=== PATIENT | male | born 1960 | race Caucasian/White ===

== ENCOUNTER → 2018-04-02 | Outpatient (CLI) | payer OTHER, MEDICAID | LOC: CIMAGING 09:52 → EDSTATUS 09:59 → CIMAGING 10:00 | PROVIDERS: ATTEND Internal Medicine | DX: G40.909 Epilepsy, unspecified, not intractable, without status epilepticus (principal); D17.1 Benign lipomatous neoplasm of skin and subcutaneous tissue of trunk | CPT/HCPCS: 71046-PO ==

== ENCOUNTER 2018-04-28 10:37 | Day surgery (SDC) | payer OTHER, MEDICAID ==
[2018-04-28] MEDS ORDERED: LIDOCAINE 1% 300 MG/30 ML SDV ONE (10:46)
[2018-04-28] MEDS ORDERED: BUPIVACAINE 0.5% 30 ML SDV ONE (10:47)
[2018-04-28] MEDS ORDERED: LR 1,000 ML IV ONE (11:06)
[2018-04-28] MEDS ORDERED: LIDOCAINE 1% 2 ML INJ ID PRN (11:06)
[2018-04-28] MEDS ORDERED: ceFAZolin 2 GM/DEXTROSE 100 ML IV ONE (11:06)
--- NOTE | 2018-04-28 11:48 | PDANEPAE ---
ANE History of Present Illness chest lipoma ANE Past Medical History - Cardiovascular History Hx Hypertension: No Hx Arrhythmias: No Hx Chest Pain: No Hx Coronary Artery / Peripheral Vascular Disease: No Hx CHF / Valvular Disease: No Hx Palpitations: No - Pulmonary History Hx COPD: No Hx Asthma/Reactive Airway Disease: No Hx Recent Upper Respiratory Infection: No Hx Oxygen in Use at Home: No Hx Sleep Apnea: No Sleep Apnea Screening Result - Last Documented: Negative - Neurologic History Hx Cerebrovascular Accident: No Hx Seizures: Yes Hx Dementia: No Neurologic History Comment: last seizure 3 or 4 years. 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 bilateral hearing aides. - Chronic Pain History Chronic Pain: No - Surgical History Prior Surgeries: vagal nerve stimulator placed. battery replaced on vagal nerve stimulator ANE Review of Systems Review of systems is: negative Review of Systems: - Exercise capacity METS (RN): 4 METS ANE Patient History - Allergies Allergies/Adverse Reactions: No Known Allergies Allergy (Unverified 11/05/14 17:35) - Home Medications Home medications: home medication list seen and reviewed Home Medications: Keppra 1000 mg 11/05/14 [Last Taken 04/28/18 09:15] Zonisamide 11/05/14 [Last Taken 04/28/18 09:15] Herbals/Supplements -Info Only 04/27/18 [Last Taken 04/27/18] - NPO status NPO Status: no food or drink >8 hours NPO Since - Liquids (Date): 04/28/18 NPO Since - Liquids (Time): 09:15 NPO Since - Solids (Date): 04/27/18 NPO Since - Solids (Time): 21:30 - Anes Hx Anes Hx: no prior problems - Smoking Hx Smoking Status: Never smoked - Alcohol Use Alcohol Use: None - Family Anes Hx Family Anes Hx: none Family Hx Anesthesia Complications: none ANE Labs/Vital Signs - Vital Signs Blood Pressure: 113/78 Heart Rate: 65 Respiratory Rate: 16 O2 Sat (%): 97 Height: 180.34 cm Weight: 81.647 kg ANE Physical Exam - Airway Neck exam: FROM Mallampati Score: Class 2 Mouth exam: normal dental/mouth exam - Pulmonary Pulmonary: no respiratory distress, clear to auscultation - Cardiovascular Cardiovascular: regular rate and rhythym, no murmur, rub, or gallop - ASA Status ASA Status: II ANE Anesthesia Plan Anesthesia Plan: general endotracheal anesthesia, GA w LMA
[2018-04-28 12:19] LABS: PLATELET COUNT 176 10^3/uL (150-400)
[2018-04-28] MEDS ORDERED: fentaNYL 100 MCG/2 ML INJ ONE (13:13)
[2018-04-28] MEDS ORDERED: PROPOFOL 200 MG/20 ML VIAL ONE (13:13)
[2018-04-28] MEDS ORDERED: LIDOCAINE 2% 5 ML SDV ONE (13:14)
[2018-04-28] MEDS ORDERED: MEPERIDINE 25 MG/0.5 ML AMP IVP PRN (13:40)
[2018-04-28] MEDS ORDERED: fentaNYL 100 MCG/2 ML INJ IVP PRN (13:40)
[2018-04-28] MEDS ORDERED: PROMETHAZINE HCL 25 MG/ML INJ IVP PRN (13:40)
[2018-04-28] MEDS ORDERED: NALOXONE HCL 0.4 MG/ML INJ IVP PRN (13:40)
--- NOTE | 2018-04-28 13:41 | POSTANESTH ---
Post Anesthetic Evaluation Cardiovascular Status: Normal, Stable Respiratory Status: Normal, Stable Level of Consciousness/Mental Status: Can Participate in Eval Pain Control: Adequate, Prn Tx Ordered Nausea/Vomiting Control: Adequate, Prn Tx Ordered Complications Possibly Related to Anesthesia: None Noted
[2018-04-28] MEDS ORDERED: ONDANSETRON 4 MG/2 ML VIAL ONE (13:44)
[2018-04-28] MEDS ORDERED: DEXAMETHASONE 4 MG/ML VIAL ONE (13:44)
[2018-04-28] MEDS ORDERED: KETOROLAC 30 MG/1 ML SDV ONE (13:45)
[2018-04-28 15:25] VITALS: BP 120/77
--- NOTE | 2018-04-28 22:37 | GOP ---
DATE OF OPERATION: 04/28/2018 SURGEON: Milton Childs MD AQUATICS COORDINATOR: HANNA Dickens ANESTHESIOLOGIST: Dr. Donnelly. PREOPERATIVE DIAGNOSIS: Left chest wall mass. POSTOPERATIVE DIAGNOSIS: Lipoma. PROCEDURE PERFORMED: Excision of chest wall mass. FINDINGS: Patient was found to have 8 cm lipoma on the anterior left chest wall. ESTIMATED BLOOD LOSS: Less than 5 cc. DESCRIPTION OF PROCEDURE: The patient was taken to the operating room where he received satisfactory laryngeal mask anesthesia by Dr. Donnelly and placed in supine position, prepped and draped in usual ghanshyam rile fashion. A transverse incision was made over the palpable mass. Dissection was carried down through subcutane ous tissue and down to the capsule of the mass. It appeared to be a large lipoma. This was easily d issected free from the pectoralis fascia and the surrounding subcutaneous tissue and removed intact. Hemostasis was obtained with electrocautery. The wound was infiltrated with 0.5% Marcaine and close d in layers with a running 3-0 Vicryl suture for the subcutaneous tissue and a 4-0 Monocryl subcuticu lar stitch for the skin. All layers again were infiltrated with 0.5% Marcaine. He tolerated the pro cedure well, taken recovery room in good condition. COMPLICATIONS: No complications. /[id number]/MODL
== END 2018-04-28 16:01 | disposition home or self-care (01) ==
LOC: FSGY 10:37
PROVIDERS: ATTEND Surgery
PROC: 0JB60ZX Excision of Chest Subcutaneous Tissue and Fascia, Open Approach, Diagnostic (ICD-10-PCS; principal; 2018-04-28 12:15)
DX: D17.1 Benign lipomatous neoplasm of skin and subcutaneous tissue of trunk (principal)
CPT/HCPCS: 80177-90; J0690; J1100; J1885; J2405; J2704; J3010